=== PATIENT | male | born 1945 | race Caucasian/White ===

== ENCOUNTER → 2016-07-15 | Outpatient (CLI) | payer OTHER, BC ==
--- NOTE | 2016-07-15 16:21 | DI ---
CT CHEST SCAN WITHOUT IV CONTRAST, 07/15/2016 2:55 PM : Clinical History: Followup ascending aortic aneurysm. Previous Exam: None at this facility. Scans are performed from the base of the neck to the lower lung bases without IV contrast. Sagittal a nd coronal images using non MIPS and MIPS technique are generated. The base of the neck and thoracic inlet are normal. There are no abnormal axillary, supraclavicular, mediastinal, or hilar nodes. The patient is status post CABG. There is an ascending aortic aneurysm i n the maximum AP and transverse dimensions are 51 x 50 mm. The descending thoracic aorta is normal in caliber. There is no acute infiltrate or effusion and no pulmonary nodules are noted. Both adrenal g lands and the spleen as well as the visualized portions of the liver and pancreas are normal. READIN. Status post CABG. There is an ascending aortic aneurysm with the maximum AP and transverse measur ements of 51 x 50 mm, respectively. There is no evidence of leakage of the aneurysm. 2. The remainder of the exam is normal.
== END ==
LOC: CT 14:40
PROVIDERS: ATTEND Psychiatry & Neurology Neurology
DX: I71.2 Thoracic aortic aneurysm, without rupture (principal); Z95.1 Presence of aortocoronary bypass graft
CPT/HCPCS: 71250

== ENCOUNTER → 2017-01-29 | Outpatient (CLI) | payer OTHER, BC ==
[2017-01-29 09:58] LABS: HEMOGLOBIN 15.6 g/dL (14.0-18.0); MEAN CORPUSCULAR HEMOGLOBIN 32.1 PG (27-31); MEAN CORPUSCULAR HGB CONC 33.9 g/dL (33-37); MEAN CORPUSCULAR VOLUME 94.7 FL (80-90); MEAN PLATELET VOLUME 9.9 FL (7.4-12.2); RED BLOOD COUNT 4.86 10^6/uL (4.70-6.10)
[2017-01-29 10:18] LABS: BLOOD UREA NITROGEN 13 mg/dL (7-22); CALCIUM 9.1 mg/dL (8.7-10.7); CHOL/HDL RATIO 2.29 RATIO (0-4.0); EST GLOMERULAR FILTRATION > 60 (>60 ml/min/1.73m(2)); HDL CHOLESTEROL 51 mg/dL (40-150); SERUM CHOLESTEROL 117 mg/dL (120-200)
[2017-01-29 10:19] LABS: HEMOGLOBIN A1C 5.27 % (4.2-6.0)
[2017-01-29 10:34] LABS: FREE T4 (FREE THYROXINE) 1.24 ng/dL (0.93-1.71)
== END ==
LOC: LAB 09:37
PROVIDERS: ATTEND Family Medicine
DX: I10 Essential (primary) hypertension (principal); R73.01 Impaired fasting glucose; E78.5 Hyperlipidemia, unspecified; Z12.5 Encounter for screening for malignant neoplasm of prostate
CPT/HCPCS: 36415; 80053; 80061; 83036; 84439; 84443; 85027; G0103

== ENCOUNTER → 2017-02-04 | Outpatient (CLI) | payer OTHER, BC | LOC: MOB EKG 09:30 | PROVIDERS: ATTEND Specialist | DX: I71.2 Thoracic aortic aneurysm, without rupture (principal); I25.10 Atherosclerotic heart disease of native coronary artery without angina pectoris; I35.1 Nonrheumatic aortic (valve) insufficiency; I10 Essential (primary) hypertension; F17.210 Nicotine dependence, cigarettes, uncomplicated | CPT/HCPCS: 99204; G0463 ==

== ENCOUNTER → 2017-02-07 | Outpatient (CLI) | payer OTHER, BC ==
--- NOTE | 2017-02-07 14:03 | DI ---
History: Aneurysm Comparison August 15, 2015 Findings: There is aortic atherosclerosis. There is minimal ectasia of the distal abdominal aorta wit h cross-sectional measurement of 0.5 cm as compared with the more proximal measures and 2.2.3 centime ters. There is no true abdominal aortic aneurysm. The liver, spleen, pancreas, and adrenal glands are unremarkable. There are bilateral renal cortical cyst better demonstrated on the contrast-enhanced CT scan August 15, 2015. Visualized intestines unremarkable. There is no free air or free fluid in the abdomen. Impression: Minimal ectasia of the distal abdominal aorta with cross-sectional measurement of 2.5 cm as compared with more proximal measurement of 2.3 cm. No significant changes compared to CT scan of July 26, 2015
== END ==
LOC: CT 12:41
PROVIDERS: ATTEND Specialist
DX: I71.2 Thoracic aortic aneurysm, without rupture (principal)
CPT/HCPCS: 71250; 74150